=== PATIENT | female | born 1955 | race Two or more races ===

== ENCOUNTER 2017-04-16 21:46 | Emergency (ER) | payer OTHER ==
[~2017-04-16] VITALS: Ht 160 cm; Wt 78.0 kg
[2017-04-16] MEDS ORDERED: Acetaminophen 500mg (ES) tab ORAL ONE (22:15)
[2017-04-16 22:44] LABS: HEMATOCRIT 34.9 % (37.0-47.0); HEMOGLOBIN 11.5 G/DL (12.0-16.0); MEAN CORPUSCULAR VOLUME 96 FL (80-99); PLATELET COUNT 153 K/UL (150-450); RED BLOOD COUNT 3.64 M/UL (4.20-5.40); RED CELL DISTRIBUTION WIDTH 11.5 % (11.6-14.8)
[2017-04-16 22:58] LABS: BASOPHILS % (AUTO) 0.3 % (0.0-2.0); LYMPHOCYTES % (AUTO) 4.4 % (20.0-45.0); MONOCYTES % (AUTO) 4.7 % (1.0-10.0); NEUTROPHILS % (AUTO) 90.4 % (45.0-75.0)
[2017-04-16 22:59] LABS: ANION GAP 13 mmol/L (5-15); BLOOD UREA NITROGEN 37 mg/dL (7-18); CALCIUM 9.3 MG/DL (8.5-10.1); CARBON DIOXIDE 21 MMOL/L (21-32); CHLORIDE 99 MMOL/L (98-107); CREATININE 1.7 MG/DL (0.55-1.30); POTASSIUM 3.5 MMOL/L (3.5-5.1); SODIUM 133 MMOL/L (136-145)
[2017-04-16 23:15] LABS: ALANINE AMINOTRANSFERASE 17 U/L (12-78); ALBUMIN 3.1 G/DL (3.4-5.0); ALBUMIN/GLOBULIN RATIO 0.6 (1.0-2.7); ALKALINE PHOSPHATASE 74 U/L (46-116); ASPARTATE AMINO TRANSFERASE 19 U/L (15-37); BILIRUBIN,TOTAL 1.2 MG/DL (0.2-1.0)
[2017-04-16 23:17] LABS: BILIRUBIN,DIRECT 0.3 MG/DL (0.0-0.3)
[2017-04-16 23:24] LABS: BILIRUBIN, URINE NEGATIVE (NEGATIVE); COLOR,URINE PALE YELLOW; GLUCOSE, URINE (UA) 4+ (NEGATIVE); KETONES,URINE NEGATIVE (NEGATIVE); NITRITE,URINE POSITIVE (NEGATIVE); PH,URINE 5 (4.5-8.0); PROTEIN,URINE 2+ (NEGATIVE); UROBILINOGEN,URINE NORMAL MG/DL (0.0-1.0)
[2017-04-16 23:31] LABS: APPEARANCE,URINE CLOUDY; LEUKOCYTE ESTERASE ,URINE 2+ (NEGATIVE)
[2017-04-16] MEDS ORDERED: cefTRIAXone 1 GM in NS 55 ML IVPB ONE (23:45)
[2017-04-16] MEDS ORDERED: Oseltamivir 75mg cap ORAL ONE (23:55)
[2017-04-17] MEDS ORDERED: LEVAQUIN500 MG ORAL (00:16)
[2017-04-17] MEDS ORDERED: TAMIFLU75 MG ORAL (00:16)
--- NOTE | 2017-04-17 00:17 | Emergency Room Report ---
History of Present Illness General Chief Complaint: Flu Like Symptoms Source: Family Member, EMS Present Illness HPI Is a 61-year-old female with history of high blood pressure diabetes. She presents with fever and altered mental status. Onset was this afternoon. Per her daughter, she was normal said of health this morning. She started having mental changes around 11 AM. She thought that mom was sleeping and did not bother her. She try to wake her up she was lethargic. Daughter called 911. She is visiting from [place]. Did not take her insulin today. Per EMS, she had a fever with a temperature here. Also blood sugar in the 400. Allergies: Coded Allergies: IBUPROFEN (Verified Allergy, Unknown, 04/16/17) Patient History Past Medical History: see triage record, old chart reviewed, DM, HTN, CVA/TIA Past Surgical History: other Pertinent Family History: none Social History: Reports: smoking Last Menstrual Period: N/A Now: No Immunizations: other Reviewed Nursing Documentation: PMH: Agreed, PSxH: Agreed Nursing Documentation-PMH Past Medical History: No History, Except For Hx Hypertension: Yes Hx Diabetes: Yes Hx Cerebrovascular Accident: Yes Review of Systems Constitutional: Reports: fever, malaise, weakness Eye: Denies: eye pain, blurred vision ENT: Denies: ear pain, nose congestion, throat swelling Respiratory: Reports: cough Cardiovascular: Denies: chest pain, palpitations Gastrointestinal: Denies: abdominal pain, diarrhea, nausea, vomiting Musculoskeletal: Denies: back pain, joint pain Skin: Denies: rash Neurological: Denies: headache, numbness Endocrine: Denies: increased thirst, increased urine Hematologic/Lymphatic: Denies: easy bruising All Other Systems: negative except mentioned in HPI Physical Exam Vital Signs Date Time Temp Pulse Resp B/P (MAP) Pulse Ox O2 Delivery O2 Flow Rate FiO2 04/16/17 21:49 103.1 140 16 134/82 95 Room Air vitals with fever and tachycardia Sp02 EP Interpretation: reviewed, normal General Appearance: well appearing, no apparent distress, lethargic Head: normocephalic, atraumatic Eyes: bilateral eye PERRL, bilateral eye EOMI ENT: hearing grossly normal, normal pharynx Neck: full range of motion, supple, no meningismus Respiratory: chest non-tender, lungs clear, normal breath sounds Cardiovascular #1: regular rate, rhythm, no murmur, tachycardia Gastrointestinal: normal bowel sounds, non tender, no mass, no organomegaly, no bruit, non-distended Musculoskeletal: back normal, normal range of motion Neurologic: other Skin: warm/dry Medical Decision Making Diagnostic Impression: Primary Impression: Influenza-like symptoms Additional Impressions: UTI (urinary tract infection) Qualified Codes: N30.00 - Acute cystitis without hematuria Hyperglycemia due to type 1 diabetes mellitus ELICIA (acute kidney injury) Anemia Qualified Codes: D64.9 - Anemia, unspecified Proteinuria Qualified Codes: R80.9 - Proteinuria, unspecified SIRS (systemic inflammatory response syndrome) ER Course This patient presents with flulike illness. Influenza was negative but I will go ahead and treat her because of her risk factor of obesity and diabetes. She does have a urinary tract infection. She does complaining of a mild cough and body aches. She is back to baseline after IV fluid and Tylenol. Fever resolved. She is much improved now. Insulin given for hyperglycemia. patient tell me that her A1c level is a 7. No evidence of ACS, pneumonia, dissection to name a few. Lab Results Impression labs with elevated glucose EKG Diagnostic Results Rate: normal Rhythm: NSR ST Segments: no acute changes Chest X-Ray Diagnostic Results Chest X-Ray Diagnostic Results : Chest X-Ray Ordered: Yes # of Views/Limited/Complete: 1 View Indication: Shortness of Breath EP Interpretation: Yes Interpretation: no consolidation, no effusion, no pneumothorax, no acute cardiopulmonary disease Impression: No acute disease Electronically Signed by: Danie Quinn MD Last Vital Signs Date Time Temp Pulse Resp B/P (MAP) Pulse Ox O2 Delivery O2 Flow Rate FiO2 04/16/17 23:52 98.6 04/16/17 21:49 140 16 134/82 95 Room Air Status: improved Disposition: HOME, SELF-CARE Condition: Stable Scripts Levofloxacin* (LEVAQUIN*) 500 Mg Tablet 500 MG ORAL DAILY, #7 TAB Prov: DANIE QUINN M.D. 04/17/17 Oseltamivir Phosphate (Tamiflu) 75 Mg Capsule 75 MG ORAL TWICE A DAY, #10 CAP Prov: DANIE QUINN M.D. 04/17/17 Patient Instructions: INFLUENZA (Adult) Additional Instructions: Followup with your DrNita in 2-3 days for recheck. Return if symptom worsen. DANIE QUINND. Apr 17, 2017 00:17
[2017-04-17] MEDS ORDERED: Albuterol ud Inhalation ONE (00:28)
[2017-04-17 00:31] VITALS: BP 110/35
[2017-04-17 00:35] VITALS: BP 110/35
[2017-04-17] MEDS ORDERED: Oseltamivir 75mg cap ORAL SCH (09:00)
--- NOTE | 2017-04-17 09:13 | Diagnostic Imaging Report ---
Indication: Shortness of breath Technique: One view of the chest Comparison: none Findings: Inspiration is suboptimal. The heart size is normal. The aorta is somewhat tortuous. Lungs and pleural spaces are clear Impression: No acute process
[2017-04-18] MEDS ORDERED: LOSARTAN POTASS25 MG ORAL (11:51)
[2017-04-18] MEDS ORDERED: MECLIZINE HCL12.5 MG ORAL (11:51)
[2017-04-18] MEDS ORDERED: GLUCOTROL5 MG ORAL (11:51)
[2017-04-18] MEDS ORDERED: METOPROLOL SUCC25 MG ORAL (11:51)
[2017-04-18] MEDS ORDERED: HUMULIN 70100 UNIT/2 SUBQ (11:51)
[2017-04-18] MEDS ORDERED: LOPERAMIDE2 M1 PO (11:51)
[2017-04-18] MEDS ORDERED: NEURONTIN100 MG ORAL (11:51)
[2017-04-18] MEDS ORDERED: ASPIRIN EC81 MG ORAL (11:51)
[2017-04-18] MEDS ORDERED: COZAAR25 MG ORAL (11:51)
[2017-04-18] MEDS ORDERED: TRAZODONE HCL150 MG ORAL (11:51)
[2017-04-18] MEDS ORDERED: PLAVIX75 MG ORAL (11:51)
[2017-04-18] MEDS ORDERED: GABAPENTIN300 MG ORAL (11:51)
[2017-04-18] MEDS ORDERED: HYDROCHLOROTH12.5 M2 ORAL (11:51)
[2017-04-18] MEDS ORDERED: ATORVASTATIN CA20 MG ORAL (11:51)
== END 2017-04-17 00:35 | disposition home or self-care (01) ==
LOC: EDBD 21:46 → EMR 22:05
DX: J11.1 Influenza due to unidentified influenza virus with other respiratory manifestations (principal); N30.00 Acute cystitis without hematuria; E10.65 Type 1 diabetes mellitus with hyperglycemia; D64.9 Anemia, unspecified; R80.9 Proteinuria, unspecified; N17.9 Acute kidney failure, unspecified; R65.10 Systemic inflammatory response syndrome (SIRS) of non-infectious origin without acute organ dysfunction; I10 Essential (primary) hypertension; Z86.73 Personal history of transient ischemic attack (TIA), and cerebral infarction without residual deficits; F17.200 Nicotine dependence, unspecified, uncomplicated; Z88.6 Allergy status to analgesic agent
CPT/HCPCS: 36415; 71045; 80053; 81003; 82248; 83605; 84484; 85025; 86710; 87040; 87086; 87181; 96361; 96365; 96375; 99284; J0696; J1815; 96374

== ENCOUNTER 2017-04-18 11:20 | Emergency (ER) | payer OTHER ==
[~2017-04-18] VITALS: Ht 149.9 cm; Wt 73.0 kg
[~2017-04-18 11:20] MED LIST: LEVAQUIN500 MG ORAL; TAMIFLU75 MG ORAL
[2017-04-18] MEDS ORDERED: HYDROCHLOROTH12.5 M2 ORAL (11:51)
[2017-04-18] MEDS ORDERED: COZAAR25 MG ORAL (11:51)
[2017-04-18] MEDS ORDERED: PLAVIX75 MG ORAL (11:51)
[2017-04-18] MEDS ORDERED: TRAZODONE HCL150 MG ORAL (11:51)
[2017-04-18] MEDS ORDERED: METOPROLOL SUCC25 MG ORAL (11:51)
[2017-04-18] MEDS ORDERED: ATORVASTATIN CA20 MG ORAL (11:51)
[2017-04-18] MEDS ORDERED: HUMULIN 70100 UNIT/2 SUBQ (11:51)
[2017-04-18] MEDS ORDERED: MECLIZINE HCL12.5 MG ORAL (11:51)
[2017-04-18] MEDS ORDERED: LOSARTAN POTASS25 MG ORAL (11:51)
[2017-04-18] MEDS ORDERED: GLUCOTROL5 MG ORAL (11:51)
[2017-04-18] MEDS ORDERED: ASPIRIN EC81 MG ORAL (11:51)
[2017-04-18] MEDS ORDERED: LOPERAMIDE2 M1 PO (11:51)
[2017-04-18] MEDS ORDERED: NEURONTIN100 MG ORAL (11:51)
[2017-04-18] MEDS ORDERED: GABAPENTIN300 MG ORAL (11:51)
--- NOTE | 2017-04-18 11:51 | Emergency Room Report ---
History of Present Illness General Chief Complaint: Abnormal Labs Source: Patient Present Illness HPI [id number] recalled to ER after micro lab informed me of Gram negative rods seen in both blood culture bottles from 04/16. Patient was discharged from ED on that date with levaquin for ?UTI Has been taking Abx Denies any symptoms but feels "50/50" per son. Denies chest pain, cough, SOB, abd pain, urinary complaints, fever/chills Allergies: Coded Allergies: IBUPROFEN (Verified Allergy, Unknown, 04/16/17) Patient History Past Medical History: DM Past Surgical History: none Pertinent Family History: none Social History: Denies: smoking, alcohol use, drug use Last Menstrual Period: 1992 Now: No Immunizations: UTD Reviewed Nursing Documentation: PMH: Agreed, PSxH: Agreed Nursing Documentation-PMH Hx Hypertension: Yes Hx Diabetes: Yes Hx Cerebrovascular Accident: Yes Review of Systems All Other Systems: negative except mentioned in HPI Physical Exam Vital Signs Date Time Temp Pulse Resp B/P (MAP) Pulse Ox O2 Delivery O2 Flow Rate FiO2 04/18/17 11:44 98.4 96 18 128/85 95 Room Air Sp02 EP Interpretation: reviewed, normal General Appearance: normal inspection, well appearing, no apparent distress, alert, GCS 15, non-toxic, obese Head: normocephalic, atraumatic Eyes: bilateral eye PERRL, bilateral eye EOMI ENT: normal ENT inspection, hearing grossly normal, normal pharynx, no angioedema, normal voice, TMs + canals normal, uvula midline, moist mucus membranes Neck: normal inspection, full range of motion, supple, thyroid normal, no meningismus, no bony tend Respiratory: normal inspection, lungs clear, normal breath sounds, no rhonchi, no respiratory distress, no retraction, no accessory muscle use, no wheezing, speaking full sentences Cardiovascular #1: regular rate, rhythm, no edema, no JVD, normal capillary refill Gastrointestinal: normal inspection, normal bowel sounds, non tender, soft, no mass, no peritonitis, non-distended, no guarding, no hernia, no pulsatile mass Genitourinary: no CVA tenderness Musculoskeletal: normal inspection, back normal, normal range of motion, no calf tenderness, pelvis stable, Maral's Sign negative Neurologic: normal inspection, alert, oriented x3, responsive, workforce development vice president III-XII nml as tested, motor strength/tone normal, cerebellar normal, normal gait, speech normal Psychiatric: normal inspection, judgement/insight normal, mood/affect normal, no suicidal/homicidal ideation, no delusions Skin: normal inspection, normal color, no rash Lymphatic: normal inspection, no adenopathy Medical Decision Making Diagnostic Impression: Primary Impression: Bacteremia Additional Impression: Abnormal laboratory test result ER Course Empiric Abx vanc/zosyn given in ED VSS, Afebrile patient well appearing No complaints Labs, Blood Cx pending at time of endorsement to Dr Ramsey for transfer to [facility] for tx of bacteremia at 1pm EMS here to transport patient at 120pm Rhythm Strip Diag. Results EP Interpretation: yes Rate: 66 Rhythm: NSR, no PVC's, no ectopy Chest X-Ray Diagnostic Results Chest X-Ray Diagnostic Results : Chest X-Ray Ordered: Yes # of Views/Limited/Complete: 1 View Indication: Other - bacteremia EP Interpretation: Yes Interpretation: no consolidation, no effusion, no pneumothorax, no acute cardiopulmonary disease Impression: No acute disease Electronically Signed by: Dr Francisco Meyers MD Last Vital Signs Date Time Temp Pulse Resp B/P (MAP) Pulse Ox O2 Delivery O2 Flow Rate FiO2 04/18/17 11:44 98.4 96 18 128/85 95 Room Air Status: improved Disposition: ADMITTED INPATIENT Condition: Serious FRANCISCO MEYERS M.D. Apr 18, 2017 11:51
[2017-04-18] MEDS ORDERED: Vancomycin 1.5gm/D5W 250ml 250 ML IVPB ONE (12:00)
[2017-04-18] MEDS ORDERED: Zosyn 4.5gm inj ONE (12:50)
[2017-04-18 13:04] LABS: BASOPHILS % (AUTO) 0.6 % (0.0-2.0); EOSINOPHILS % (AUTO) 0.1 % (0.0-3.0); HEMATOCRIT 30.3 % (37.0-47.0); HEMOGLOBIN 10.6 G/DL (12.0-16.0); MEAN CORPUSCULAR VOLUME 94 FL (80-99); NEUTROPHILS % (AUTO) 77.3 % (45.0-75.0); PLATELET COUNT 136 K/UL (150-450); RED BLOOD COUNT 3.23 M/UL (4.20-5.40); RED CELL DISTRIBUTION WIDTH 11.4 % (11.6-14.8); WHITE BLOOD COUNT 6.8 K/UL (4.8-10.8)
[2017-04-18 13:12] VITALS: BP 136/70
[2017-04-18 13:18] LABS: BILIRUBIN, URINE NEGATIVE (NEGATIVE); GLUCOSE, URINE (UA) 4+ (NEGATIVE); KETONES,URINE NEGATIVE (NEGATIVE); LEUKOCYTE ESTERASE ,URINE 1+ (NEGATIVE); NITRITE,URINE NEGATIVE (NEGATIVE); PH,URINE 5 (4.5-8.0); PROTEIN,URINE 2+ (NEGATIVE); UROBILINOGEN,URINE 1 MG/DL (0.0-1.0)
[2017-04-18 13:25] LABS: APPEARANCE,URINE CLOUDY; COLOR,URINE YELLOW
[2017-04-18 13:27] LABS: ANION GAP 12 mmol/L (5-15); BLOOD UREA NITROGEN 30 mg/dL (7-18); CALCIUM 8.5 MG/DL (8.5-10.1); CARBON DIOXIDE 21 MMOL/L (21-32); CHLORIDE 96 MMOL/L (98-107); CREATININE 1.4 MG/DL (0.55-1.30); POTASSIUM 3.6 MMOL/L (3.5-5.1); SODIUM 129 MMOL/L (136-145)
[2017-04-18 13:35] LABS: ALANINE AMINOTRANSFERASE 42 U/L (12-78); ALBUMIN 2.5 G/DL (3.4-5.0); ALBUMIN/GLOBULIN RATIO 0.5 (1.0-2.7); ALKALINE PHOSPHATASE 70 U/L (46-116); ASPARTATE AMINO TRANSFERASE 78 U/L (15-37); BILIRUBIN,TOTAL 0.5 MG/DL (0.2-1.0); CKMB 4.3 NG/ML (0.0-3.6); CREATINE KINASE 968 U/L (26-308)
[2017-04-18 13:38] VITALS: BP 136/70
[2017-04-18] MEDS ORDERED: Piperacillin/Tazobactam 4.5 GM in NS 110 ML IV SCH (14:00)
--- NOTE | 2017-04-18 14:14 | Diagnostic Imaging Report ---
Indication: Shortness of breath Technique: One view of the chest Comparison: And 06/12/2017 Findings: The heart is upper limits of normal in size. The aorta is tortuous and ectatic. Lungs and pleural spaces are clear. No significant interim change Impression: No acute process
--- NOTE | 2017-04-22 17:02 | Cardiology Report ---
APPROVED REPORT EKG Measurement Heart [id number] Normal sinus rhythm Normal ECG
== END 2017-04-18 13:40 | disposition short-term general hospital (02) ==
LOC: EMR 12:05
DX: R78.81 Bacteremia (principal); R79.89 Other specified abnormal findings of blood chemistry; E11.9 Type 2 diabetes mellitus without complications; I10 Essential (primary) hypertension; Z86.73 Personal history of transient ischemic attack (TIA), and cerebral infarction without residual deficits; Z88.6 Allergy status to analgesic agent
CPT/HCPCS: 36415; 71045; 80053; 81003; 82550; 82553; 83605; 84484; 85025; 87040; 87086; 93005; 99285; J3370

== ENCOUNTER 2019-08-13 14:24 | Emergency (ER) | payer MEDICARE, OTHER ==
[~2019-08-13] VITALS: Ht 149.9 cm; Wt 54.4 kg
--- NOTE | 2019-08-13 14:22 | NUR ---
ED Nurse Note: PT brought in by ambulance from home for S/P fall x 30 min ago. pt C/O pain 10/10 to her lower back. currently pt is non ambulatory.
[2019-08-13 14:24] VITALS: BP 120/72
[~2019-08-13 14:24] MED LIST changes: +ASPIRIN EC81 MG ORAL; +ATORVASTATIN CA20 MG ORAL; +COZAAR25 MG ORAL; +GABAPENTIN300 MG ORAL; +GLUCOTROL5 MG ORAL; +HUMULIN 70100 UNIT/2 SUBQ; +HYDROCHLOROTH12.5 M2 ORAL; +LOPERAMIDE2 M1 PO; +LOSARTAN POTASS25 MG ORAL; +MECLIZINE HCL12.5 MG ORAL; +METOPROLOL SUCC25 MG ORAL; +NEURONTIN100 MG ORAL; +PLAVIX75 MG ORAL; +TRAZODONE HCL150 MG ORAL
[2019-08-13] MEDS ORDERED: Morphine Sulfate 2mg/ml Inj(IV/IM USE ONLY) IVP ONE ×2 (14:45→17:30)
--- NOTE | 2019-08-13 14:46 | NUR ---
ED Nurse Note: pilot plant technician Héctor at the bed side.
[2019-08-13 14:47] LABS: BASOPHILS % (AUTO) 0.9 % (0.0-2.0); EOSINOPHILS % (AUTO) 1.5 % (0.0-3.0); HEMATOCRIT 33.8 % (37.0-47.0); HEMOGLOBIN 11.9 G/DL (12.0-16.0); LYMPHOCYTES % (AUTO) 32.1 % (20.0-45.0); MEAN CORPUSCULAR VOLUME 89 FL (80-99); MONOCYTES % (AUTO) 5.8 % (1.0-10.0); NEUTROPHILS % (AUTO) 59.7 % (45.0-75.0); PLATELET COUNT 213 K/UL (150-450); RED CELL DISTRIBUTION WIDTH 12.2 % (11.6-14.8); WHITE BLOOD COUNT 7.6 K/UL (4.8-10.8)
[2019-08-13 14:57] LABS: ANION GAP 11 mmol/L (5-15); BLOOD UREA NITROGEN 14 mg/dL (7-18); CALCIUM 9.8 MG/DL (8.5-10.1); CARBON DIOXIDE 25 MMOL/L (21-32); CHLORIDE 104 MMOL/L (98-107); POTASSIUM 3.8 MMOL/L (3.5-5.1); SODIUM 140 MMOL/L (136-145)
[2019-08-13 15:03] LABS: ALANINE AMINOTRANSFERASE 23 U/L (12-78); ALBUMIN 3.1 G/DL (3.4-5.0); ALBUMIN/GLOBULIN RATIO 0.6 (1.0-2.7); ALKALINE PHOSPHATASE 118 U/L (46-116); ASPARTATE AMINO TRANSFERASE 19 U/L (15-37); BILIRUBIN,TOTAL 0.4 MG/DL (0.2-1.0)
--- NOTE | 2019-08-13 15:08 | NUR ---
ED Nurse Note: PT taken to have CT via gurney in stable condition.
--- NOTE | 2019-08-13 15:10 | NUR ---
ED Nurse Note: Pt taken to CT via [facility].
--- NOTE | 2019-08-13 15:20 | NUR ---
ED Nurse Note: returned back from ct
--- NOTE | 2019-08-13 15:30 | NUR ---
ED Nurse Note: urine sample collected and sent to lab
[2019-08-13 16:01] LABS: APPEARANCE,URINE CLOUDY; BILIRUBIN, URINE NEGATIVE (NEGATIVE); COLOR,URINE PALE YELLOW; GLUCOSE, URINE (UA) NEGATIVE (NEGATIVE); KETONES,URINE NEGATIVE (NEGATIVE); LEUKOCYTE ESTERASE ,URINE 3+ (NEGATIVE); NITRITE,URINE POSITIVE (NEGATIVE); PH,URINE 6.5 (4.5-8.0); PROTEIN,URINE 1+ (NEGATIVE); UROBILINOGEN,URINE NORMAL MG/DL (0.0-1.0)
[2019-08-13 16:32] VITALS: BP 124/80
--- NOTE | 2019-08-13 16:32 | Diagnostic Imaging Report ---
Indications: Pain, trauma, status post fall Technique: Spiral acquisitions obtained through the lumbar spine. Multiplanar reconstructions were generated. No IV contrast utilized. Total dose length product 692 mGycm. CTDIvol(s) 10 mGy. Dose reduction achieved using automated exposure control Comparison: none Findings: There is a burst/compression fracture of the L4 vertebral body. Numerous clefts are interspersed with sclerotic bone. There is also indistinctness of the superior endplate There is retropulsion of the superior-posterior wall, with a retropulsed fragment protruding up to 8 mm into the spinal canal. This results in narrowing of the spinal canal to minimal 5 mm at this level. The posterior elements are intact. Also noted is a fracture of the right posterior 10th rib. This has some callous surrounding it so is probably subacute. There is also nonunion of the tips of the L1 transverse processes. These appear to be corticated so are probably developmental rather than posttraumatic in nature. There is slight loss of height of the L2 vertebral body, but suspect that this is developmental in nature. The remaining vertebral body heights are preserved. The bony alignment is normal. No other acute fractures or dislocations. At T11-12, there is mild degenerative disc narrowing. No significant disc bulge or protrusion. There is mild right neural foraminal stenosis due to facet arthrosis. At T12-L1, no significant disc bulge or protrusion, spinal stenosis, or neural foraminal narrowing. At L1-2, there is posterior disc bulge/osteophyte complex and focal ossification of posterior longitudinal ligament. This results in mild narrowing of the spinal canal at this level. There is mild bilateral neural foraminal stenosis. There is bilateral facet arthrosis. There is a superior endplate of L2 intravertebral disc herniation At L2-3, posterior disc bulge/osteophyte complex results in borderline narrowing of the spinal canal. There is an L3 superior endplate intravertebral disc herniation No significant neural foraminal compromise. At L3-4, there is the superior endplate retropulsion as noted above. There is mild compromise of the bilateral neural foramina due to facet hypertrophy as well as the alignment abnormality. At L4-5, there is circumferential annular bulge. This does not significantly narrow the spinal canal or compromise the neural foramina. At L5-S1, there is degenerative disc narrowing. There is left paracentral posterior disc bulge/osteophyte complex which may compromise left lateral recess. There is moderate to severe right and left neural foraminal stenosis. There is bilateral sacroiliac degenerative change. There is achievable slight sclerosis of the S1 segment The included extra spinal soft tissues demonstrate colonic diverticulosis. Impression: Positive for L4 vertebral body burst/compression fracture, with significant posterior retropulsion of the posterior wall. Given the mixed osteolytic and osteosclerotic appearance of the vertebral segment and loss of the superior endplate, this is likely to be a pathologic fracture, either due to tumor or infection Subacute fracture of the right posterior 10th rib Questionable slight sclerosis of the S1 segment. This may just represent sparing in a background of possible chronic change, but the possibility that this could represent an osteoblastic lesion should also be considered given the above findings Multilevel degenerative changes, as detailed on a level by level basis above The CT scanner at [facility] is accredited by the [employer] and the scans are performed using protocols designed to limit radiation exposure to as low as reasonably achievable to attain images of sufficient resolution adequate for diagnostic evaluation.
--- NOTE | 2019-08-13 16:35 | Diagnostic Imaging Report ---
Indications: Pain, status post fall Technique: Spiral acquisitions obtained through the brain. Angled axial and coronal 5 x 5 mm slices were reconstructed. Total dose length product 992 mGycm. CTDI vol(s) 53 mGy. Dose reduction achieved using automated exposure control Comparison: None. Findings: There is age-related enlargement of the ventricles and extra axial CSF spaces. There is periventricular deep white matter low-attenuation, consistent with chronic microvascular ischemic changes. There is an old lacunar infarct in the left basal ganglia. Old lacunar infarcts are also seen in the anterior corpus callosum to the right of midline. There is some periventricular deep white matter ischemic change. No acute intracranial hemorrhage or edema. No mass effect nor midline shift. Normal godfrey-white differentiation. Visualized orbits are unremarkable. The sinuses are clear. The mastoids are clear. The calvarium is intact. Impression: Chronic and age-related changes Negative for acute intracranial bleed or mass effect. Multiple old infarcts, as described The CT scanner at [facility] is accredited by the [employer] and the scans are performed using protocols designed to limit radiation exposure to as low as reasonably achievable to attain images of sufficient resolution adequate for diagnostic evaluation.
--- NOTE | 2019-08-13 16:57 | Diagnostic Imaging Report ---
Indication: Trauma, pain, status post fall Technique: Spiral acquisitions obtained through the thoracic spine. No IV contrast utilized. Multiplanar reconstructions were generated. Total dose length product 692 mGycm. CTDIvol(s) 10 mGy. Dose reduction achieved using automated exposure control Comparison: none Findings: 20 alignment is normal. Vertebral body heights are preserved. The disc spaces are preserved. There are multilevel degenerative proliferative changes noted. There are degenerative changes of the lower cervical spine-please refer to separate report. At T8-9 and T9-10, there is some posterior disc bulge/osteophyte complex, which does not appear to significantly impinge upon the spinal canal. At the remaining disc levels, no significant thoracic disc bulge or protrusion, spinal stenosis, or neural foraminal stenosis. The included extraspinal soft tissues demonstrate posterior dependent pulmonary atelectatic changes. Impression: No acute bony trauma Mild degenerative changes, as detailed on a level by level basis above The CT scanner at [facility] is accredited by the [employer] and the scans are performed using protocols designed to limit radiation exposure to as low as reasonably achievable to attain images of sufficient resolution adequate for diagnostic evaluation.
--- NOTE | 2019-08-13 17:14 | Emergency Room Report ---
History of Present Illness General Chief Complaint: Multiple Trauma/Fall Source: Patient (Susan Justice) Present Illness HPI 64-year-old female with history of type 2 diabetes and hypertension currently controlled with medication brought in by paramedics post fall on lower back. Patient reports that she was walking with her walker that felt dizzy and fell landed on her lower back. Rates the pain 10 out of 10 with radiation to both legs. Denies any saddle paresthesia, urinary or bowel incontinence. Denies any tingling or numbness. Patient is neurovascularly intact. Denies any head trauma loss of consciousness. Patient reports tingling in the left foot however denies numbness or tingling in the entire lower extremities. Reports that has history of arthritis of both knees. Has not taken medication for symptom relief. Denies chest pain, shortness of breath, headache and dizziness. At this time. Reports that prior to fall she felt dizzy and has been feeling dizzy for the past month however has been unable to see primary doctor due to the pandemic. Patient reports that she smokes cigarettes. (Susan Justice) Allergies: Coded Allergies: IBUPROFEN (Verified Allergy, Unknown, 04/16/17) COVID-19 Screening COVID-19 risk:Contact w/high r: No COVID-19 risk:Travel to affect: No Has patient experienced delgadillo: No COVID-19 Testing performed RN EMERGENCY ROOM: No (Susan Justice) Patient History Past Medical History: unable to obtain Past Surgical History: none Pertinent Family History: none Now: No Immunizations: UTD Reviewed Nursing Documentation: PMH: Agreed; PSxH: Agreed (Susan Justice) Nursing Documentation-PMH Past Medical History: No History, Except For Hx Hypertension: Yes Hx Diabetes: Yes Hx Cerebrovascular Accident: Yes (Susan Justice) Review of Systems All Other Systems: negative except mentioned in HPI (Susan Justice) Physical Exam Vital Signs Date Time Temp Pulse Resp B/P (MAP) Pulse Ox O2 Delivery O2 Flow Rate FiO2 08/13/19 14:20 97.5 92 16 115/76 (89) 98 Room Air Sp02 EP Interpretation: reviewed, normal General Appearance: normal inspection, alert, no apparent distress, GCS 15 Head: normocephalic, atraumatic Eyes: normal eye exam, PERRL, EOMI, lids + conjunctiva normal, no hyphema, no racoon eyes ENT: normal ENT inspection, TMs + canals normal, oropharynx normal, no klein signs Neck: trach midline, no bony tend, full range of motion without pain Respiratory: effort normal, no retractions, clear to auscultation, chest symmetrical, palpation of chest normal, speaking in full sentences Cardiovascular: regular rate, rhythm, no JVD Cardiovascular #2: 2+ femoral (R), 2+ femoral (L), 2+ dorsalis pedis (R), 2+ dorsalis pedis (L) Gastrointestinal: normal inspection, non-tender, non-distended, no rebound/ guarding, normal bowel sounds Musculoskeletal: other - unable to sit straigth. no bony tenderness in T and C spine Skin: no rash Lymphatic: normal inspection, normal cervical nodes Neurologic: oriented x3, sensory intact, motor strength/tone normal, normal speech Psychiatric: normal inspection, judgment & insight normal (Susan Justice) Medical Decision Making PA Attestation All my diagnosis and treatment plans were reviewed ad discussed with my supervising physician Dr. Faust (Susan Justice) Diagnostic Impression: Primary Impression: Lumbar compression fracture Additional Impressions: Rib fracture UTI (urinary tract infection) ER Course 64-year-old female with history of type 2 diabetes and hypertension currently controlled with medication brought in by paramedics post fall on lower back. Patient reports that she was walking with her walker that felt dizzy and fell landed on her lower back. Rates the pain 10 out of 10 with radiation to both legs. Denies any saddle paresthesia, urinary or bowel incontinence. Denies any tingling or numbness. Patient is neurovascularly intact. Denies any head trauma loss of consciousness. Patient reports tingling in the left foot however denies numbness or tingling in the entire lower extremities. Reports that has history of arthritis of both knees. Has not taken medication for symptom relief. Denies chest pain, shortness of breath, headache and dizziness. At this time. Reports that prior to fall she felt dizzy and has been feeling dizzy for the past month however has been unable to see primary doctor due to the pandemic. Patient reports that she smokes cigarettes. Ddx considered but are not limited to: Lumbar spine sprain, strain, fracture, contusion, neuropathy, cauda equina syndrome, Vital signs: are WNL, pt. is afebrile H&PE are most consistent with: compression fx L4, right 10th rib frx, UTI ORDERS: Lumbar spine CT scan no contrast, C-spine and T-spine CT scan no contrast, head CT no contrast, CBC, CMP, UA, PT and PTT, troponin, EKG, chest x- ray ER intervention: Morphine, Zofran, NS bolus, Rocephin Patient was admitted with diagnosis of compression fracture L spine to under supervision of : Christianne pt stable at time of admission Patient was evaluated in the context of the global COVID-19 pandemic, which necessitated consideration that the patient might be at risk for infection with the SARS-COV-2 virus that causes COVID-19. Institutional protocols and algorithms that pertain to the evaluation of patients at risk for COVID-19 are in a state of rapid change based on information relieved by multiple regulatory bodies including the CDC and the federal and state organizations. These policies and algorithms were followed during the patient's care in the ED. (Susan Justice) ER Course I discussed this case with the on-call orthopedic surgeon. The orthopedic surgeon stated that as long as there were no neurologic findings on exam that this patient could be managed conservatively as an inpatient in the hospital. It is identified that the patient does have a burst fracture in her lumbar spine with retropulsion. In the emergency department, the patient did not have any neurologic findings. She is admitted for further monitoring and evaluation and treatment by inpatient orthopedics and for pain control.. (Sharon Faust DO) EKG Diagnostic Results Rate: normal Rhythm: NSR ST Segments: no acute changes Other Impression No acute ST changes (Susan Justice) Chest X-Ray Diagnostic Results Chest X-Ray Diagnostic Results : Chest X-Ray Ordered: Yes # of Views/Limited/Complete: 1 View Indication: Other EP Interpretation: Yes Interpretation: no consolidation, no effusion, no pneumothorax, no acute cardiopulmonary disease Impression: No acute disease Electronically Signed by: Susan Jaime PA-C (Susan Justice) CT/MRI/US Diagnostic Results CT/MRI/US Diagnostic Results #1: Imaging Test Ordered: L spine CT no contrast Impression L4 compression fracture, 10th rib fracture CT/MRI/US Diagnostic Results #2: Imaging Test Ordered: C-spine CT no contrast Impression Base of C2 degenerative changes versus corner fracture per radiologist Dr. Pinto otherwise within normal limits, when correlated clinically patient is not tender in that area and denies any pain CT/MRI/US Diagnostic Results #3: Imaging Test Ordered: T-spine CT no contrast Impression Within normal limits CT/MRI/US Diagnostic Results #4: Imaging Test Ordered: Head CT no contrast Impression No intracranial bleed, no skull fracture (Susan Justice) Last Vital Signs Date Time Temp Pulse Resp B/P (MAP) Pulse Ox O2 Delivery O2 Flow Rate FiO2 08/13/19 15:15 97.5 08/13/19 14:24 88 16 120/72 98 Room Air (Susan Justice) Disposition: ADMITTED INPATIENT Condition: Stable Referrals: NOT CHOSEN IPA/,REFERRING (PCP) Susan Justice August 13, 2019 17:14 Sharon Faust DO Aug 23, 2019 09:26
[2019-08-13] MEDS ORDERED: cefTRIAXone 1 GM in NS 55 ML IVPB ONE (17:15)
--- NOTE | 2019-08-13 17:23 | Diagnostic Imaging Report ---
Indication: Trauma, pain, status post fall Technique: Spiral acquisitions obtained through the cervical spine. No IV contrast utilized. Multiplanar reconstructions were generated. Total dose length product 692 mGycm. CTDIvol(s) 10 mGy. Dose reduction achieved using automated exposure control. Comparison: none Findings: There is a lucency through portions of the posterior border of the C2 vertebral body. There is very slight widening of the posterior aspect of the C2-3 disc space. The remainder of C2 is intact. No other evidence of acute fracture or dislocation is demonstrated. There is degenerative narrowing of the anterior atlantoaxial joint. At C2-3, there is posterior central disc protrusion/osteophyte complex, which results in borderline narrowing of the spinal canal at this level. The neural foramina are preserved. There is bilateral facet arthrosis. At C3-4, posterior osteophytes result in mild to moderate narrowing of the spinal canal. There is moderate to severe left, mild right neural foraminal stenosis. At C4-5, there is mild degenerative disc narrowing. There is posterior disc protrusion and right paracentral disc protrusion/osteophyte complex, resulting in mild narrowing of spinal canal centrally, but severe narrowing of the right side of spinal canal and likely impingement upon the right side of the cord. There is severe right and moderate to severe left neural foraminal stenosis. At C5-6, there is mild degenerative disc narrowing. Posterior osteophytes result in mild narrowing of the spinal canal. There is moderate to severe right and severe left neural foraminal stenosis. At C6-7, there is mild degenerative disc narrowing. There is moderate to severe left neural foraminal stenosis. Posterior disc bulge/osteophyte complex results in borderline narrowing of the spinal canal. At C7-T1, no significant disc bulge or protrusion or spinal stenosis. The included extra spinal soft tissues are unremarkable. Impression: Unusual lucency through the posterior corner of the base of C2. This is probably secondary degenerative changes, but unusual corner fracture not completely excludable. Correlate with clinical findings. No other evidence of acute bony trauma Multilevel degenerative changes, as detailed on a level by level basis above. Findings discussed by phone with nurse practitioner Janeth at the time of interpretation The CT scanner at [facility] is accredited by the [employer] and the scans are performed using protocols designed to limit radiation exposure to as low as reasonably achievable to attain images of sufficient resolution adequate for diagnostic evaluation.
--- NOTE | 2019-08-13 17:27 | Diagnostic Imaging Report ---
Indication: Chest pain Technique: One view of the chest Comparison: 04/18/2017 Findings: No acute infiltrates, effusions, or congestion. Tortuous calcified aorta. Normal heart size. Upper mediastinum unremarkable. No significant interim change Impression: No acute process.
[2019-08-13 18:14] VITALS: BP 124/58
--- NOTE | 2019-08-13 19:11 | NUR ---
HAND-OFF: Report given to Ciera KUMAR.
--- NOTE | 2019-08-13 19:11 | NUR ---
ED Nurse Note: Received report from JOSÉ Vang. Patient resting in bed, no acute distress noted.
--- NOTE | 2019-08-13 20:11 | NUR ---
ED Nurse Note: Report given to JOSÉ Aparicio.
[2019-08-13 21:00] VITALS: BP 132/68
[2019-08-13] MEDS ORDERED: Morphine Sulfate 4mg/ml Inj (IV USE ONLY) IVP ONE (21:00)
--- NOTE | 2019-08-13 21:00 | NUR ---
ER DISCHARGE NOTE: Patient cleared for transfer per ERMD. Patient aao x 4 and nonambulatory. Patient was transported by [id number]. Ambulance personnel took all of patient's belongings. Patient stable upon transfer.
== END 2019-08-13 21:00 | disposition short-term general hospital (02) ==
LOC: EDBD 14:24 → EMR 14:44
DX: S32.040A Wedge compression fracture of fourth lumbar vertebra, initial encounter for closed fracture (principal); S22.31XA Fracture of one rib, right side, initial encounter for closed fracture; K57.90 Diverticulosis of intestine, part unspecified, without perforation or abscess without bleeding; R51 Headache; R07.9 Chest pain, unspecified; E11.9 Type 2 diabetes mellitus without complications; I10 Essential (primary) hypertension; Z88.6 Allergy status to analgesic agent; M17.0 Bilateral primary osteoarthritis of knee; F17.210 Nicotine dependence, cigarettes, uncomplicated; Z86.73 Personal history of transient ischemic attack (TIA), and cerebral infarction without residual deficits; N39.0 Urinary tract infection, site not specified
CPT/HCPCS: 36415; 70450; 71045; 72125; 72128; 72131; 80053; 81003; 84484; 85025; 87086; 87181; 93005; 96361; 96365; 96375; 96376; 99285; J0696; J2270; J2405; J7030; J7040